=== PATIENT | female | born 1945 | race African-American/Black ===

== ENCOUNTER 2016-12-06 09:43 | Day surgery (SDC) | payer MEDICARE, OTHER ==
--- NOTE | 2016-12-03 13:28 | HISTORY AND PHYSICAL E ---
History and Physical NAME: MARGA LONG : 1945 AGE: 71Y ADMITTED: 12/06/2016 ROOM: HISTORY: Patient did have colonoscopy in 2004, which shows polyps. She does have diverticulosis. We saw her in 2004; presented with diarrhea, sigmoid polyp. Patient did have diverticulosis, benign hyperplastic sigmoid polyps. Patient referred to us at this time by Dr. Sayda Baker, [facility]. SURGICAL HISTORY: 1. Hysterectomy. 2. Tonsillectomy. MEDICATIONS: Are: 1. Aspirin. 2. Blood sugar medications. 3. Doxycycline. 4. Omeprazole. 5. Insulin. 6. . 7. Metoprolol. ALLERGIES: Negative. REVIEW OF SYSTEMS: CARDIOVASCULAR: Hypertension. High cholesterol. ENDOCRINE: Diabetes. GASTROINTESTINAL: Diverticulosis. Benign hyperplastic polyps. FAMILY HISTORY: Father is alive. Mom . PHYSICAL EXAMINATION: GENERAL: Pleasant, alert, oriented. Referred by Dr. García. VITAL SIGNS: Blood pressure 140/80, pulse 80, respirations 20, temperature is 98. HEAD, EYES, EARS, NOSE, THROAT: Normal. ABDOMEN: Soft. NEUROLOGIC: Exam negative. CONCLUSION: 1. COLON SCREENING 2. DIVERTICULOSIS. PLAN: Colonoscopy. Admit 12/06/2016; today is 12/03/2016. DICTATING PHYSICIAN: MANAV GEIGER M.D. [id number] [id number] PHY#: [id number] ID: [id number] JOB#: [id number] ACCT: [id number] cc: >
--- NOTE | 2016-12-03 13:33 | HISTORY AND PHYSICAL E ---
History and Physical NAME: MARGA LONG : 1945 AGE: 71Y ADMITTED: 12/06/2016 ROOM: HISTORY OF PRESENT ILLNESS: Patient referred to us for colonoscopy by [facility]. A 71-year-old female for colon screening. PAST MEDICAL HISTORY: 1. Diverticulosis. 2. Hyperplastic polyps. PAST SURGICAL HISTORY: 1. Hysterectomy. 2. Colonoscopy 10 years ago. SOCIAL HISTORY: . She does not smoke. Drinks rarely. FAMILY HISTORY: Father had lung cancer. Her mom of old age. REVIEWING OF SYSTEMS: CARDIAC: Hypertension. ENDOCRINE: Diabetes. GASTROINTESTINAL: Colon screening. History of polyps. Diverticulosis. PHYSICAL EXAMINATION: VITAL SIGNS: Blood pressure 110/60, pulse 80, respirations 20, temperature is 98. HEAD, EYES, EARS, NOSE, THROAT: Normal. ABDOMEN: Soft. NEUROLOGIC: Negative. CONCLUSION: 1. Colon screening. 2. Diverticulosis. 3. History of polyps. PLAN: Colonoscopy scheduled for 11/28/2016. DICTATING PHYSICIAN: MANAV GEIGER M.D. [id number] [id number] PHY#: [id number] ID: [id number] JOB#: [id number] ACCT: [id number] cc:MANAV GEIGER M.D. >
[~2016-12-06 09:43] MED LIST: EPINEPHRINE INJ 1 MG/10 ML DISP.SYRIN ONE; FLUMAZENIL INJ 0.5 MG/5 ML VIAL IV ONE; GLYCOPYRROLATE INJ 0.4 MG/2 ML VIAL ONE; LIDOCAINE 2% JELLY 30 ML TUBE ONE; NALOXONE HCL INJ/PF 0.4 MG/1 ML SDV ONE; ONDANSETRON HCL INJ/PF 4 MG/2 ML SDV ONE
[2016-12-06] MEDS: MIDAZOLAM 2 MG/2 ML INJ ONE ×4 (10:26→10:42)
[2016-12-06] MEDS: FENTANYL CITRATE INJ/PF 100 MCG/2 ML AMPUL ONE ×2 (10:28→10:41)
[2016-12-06] MEDS ORDERED: GLUCAGON,HUMAN RECOMB 1 MG INJ ONE (10:39)
[2016-12-06 11:45] LABS: ABSOLUTE EOSINOPHILS # (AUTO) 0.1 10^3/uL (0.0-0.6); ABSOLUTE LYMPHOCYTES (AUTO) 1.1 10^3/uL (0.5-4.7); ABSOLUTE MONOCYTES (AUTO) 0.5 10^3/uL (0.1-1.4); ABSOLUTE NEUT (AUTO) 7.1 10^3/uL (1.7-8.2); BASOPHILS % (AUTO) 0.4 % (0-2); HEMATOCRIT 33.8 % (36.0-47.0); HEMOGLOBIN 11.1 g/dL (12.0-15.5); HGB HCT DIFFERENCE -0.5; LYMPHOCYTES % (AUTO) 12.6 % (13-45); MEAN CORPUSCULAR HEMOGLOBIN 28.5 pg (27.0-33.4); MEAN CORPUSCULAR VOLUME 86 fl (80-97); MONOCYTES % (AUTO) 5.9 % (3-13); RED BLOOD COUNT 3.91 10^6/uL (3.72-5.28); RED CELL DISTRIBUTION WIDTH 14.6 % (11.5-14.0); SEGMENTED NEUTROPHILS % (AUTO) 80.1 % (42-78); WHITE BLOOD COUNT 8.9 10^3/uL (4.0-10.5)
[2016-12-06 11:59] VITALS: BP 119/59
--- NOTE | 2016-12-08 18:22 | DISCHARGE SUMMARY E ---
Discharge Summary NAME: MARGA LONG : 1945 AGE: 71Y ADMITTED: 12/06/2016 DISCHARGED: 12/06/2016 FINAL DIAGNOSES: 1. Diverticulosis, sigmoid descending colon, distal transverse colon. 2. Diminutive polyps, sigmoid and descending colon, 1 mm to 3 mm in size, benign looking, adjacent to the diverticulosis. DISCHARGE PLAN: 1. Diet, soft residue, 3 days. 2. Hold aspirin and nonsteroidal 5 days. 3. Awaiting biopsy results. 4. Followup office visit in the next few days. 5. Consideration followup colonoscopy 2 years pending biopsy results. DICTATING PHYSICIAN: MANAV GEIGER M.D. [id number] [id number] PHY#: [id number] ID: [id number] JOB#: [id number] ACCT: [id number] cc:REYES AUGUSTINE PA-C, MAHMOUD M.D. >
--- NOTE | 2016-12-08 18:23 | OPERATIVE REPORT E ---
Operative Report NAME: MARGA LONG : 1945 AGE: 71Y DATE OF SURGERY: 12/06/2016 ROOM: PREOPERATIVE DIAGNOSIS: COLON SCREENING. POSTOPERATIVE DIAGNOSES: 1. DIMINUTIVE RECTAL POLYPS. 2. DIMINUTIVE SIGMOID POLYPS. 3. SEVERE DIVERTICULOSIS SIGMOID DESCENDING COLON. OPERATION: Colonoscopy. SURGEON: MANAV GEIGER M.D. TISSUE REMOVED OR ALTERED: Polyps 1 to 2 mm in size each benign. Sigmoid, 3 polyps, 2 to 3 cm in size, benign. Descending colon diverticulosis. Transverse colon diverticulosis. Ascending colon normal. Cecum normal. Cecum withdrawn cecum, ascending, transverse, descending, sigmoid all the way to the rectum. CONCLUSIONS: Scattered diverticulosis in the distal ascending, transverse, descending and sigmoid. Diminutive benign-looking polyp in the rectum and sigmoid. Consideration followup colonoscopy 2 years, awaiting biopsy results. Preop screening with diminutive polyps sigmoid, descending colon, scattered diverticulosis transverse and descending and sigmoid colon. PLAN: Awaiting biopsy results. Consideration followup colonoscopy 2 years pending biopsy results. DICTATING PHYSICIAN: MANAV GEIGER M.D. [id number] [id number] PHY#: [id number] ID: [id number] JOB#: [id number] ACCT: [id number] cc:MANAV GEIGER M.D. , [facility]
== END 2016-12-06 12:15 | disposition home or self-care (01) ==
LOC: END 09:43
PROVIDERS: ATTEND Specialist
PROC: 0DBN8ZX Excision of Sigmoid Colon, Via Natural or Artificial Opening Endoscopic, Diagnostic (ICD-10-PCS; 2016-12-06)
PROC: 0DBP8ZX Excision of Rectum, Via Natural or Artificial Opening Endoscopic, Diagnostic (ICD-10-PCS; principal; 2016-12-06 10:00)
DX: Z12.11 Encounter for screening for malignant neoplasm of colon (principal); K57.30 Diverticulosis of large intestine without perforation or abscess without bleeding; D12.7 Benign neoplasm of rectosigmoid junction; I10 Essential (primary) hypertension; E78.00 Pure hypercholesterolemia, unspecified; E11.9 Type 2 diabetes mellitus without complications; Z79.4 Long term (current) use of insulin; Z79.82 Long term (current) use of aspirin; Z79.899 Other long term (current) drug therapy; Z79.84 Long term (current) use of oral hypoglycemic drugs
CPT/HCPCS: 45380; 36415; 82962; 85025; 88305 ×2; J2250; J3010; J1610; J2405; J0171; J2310; J3490

== ENCOUNTER → 2017-04-15 | Outpatient (CLI) | payer MEDICARE, OTHER ==
[2017-04-15 10:49] LABS: ALANINE AMINOTRANSFERASE 15 U/L (9-52); ALBUMIN 4.1 g/dL (3.5-5.0); ALKALINE PHOSPHATASE 50 U/L (38-126); ASPARTATE AMINO TRANSFERASE 21 U/L (14-36); BILIRUBIN,DIRECT 0.4 mg/dL (0.0-0.4); BILIRUBIN,TOTAL 0.4 mg/dL (0.2-1.3); CHOLESTEROL 125.86 mg/dL (0-200); Direct HDL 68 mg/dL (>40); TOTAL PROTEIN 6.7 g/dL (6.3-8.2); TRIGLYCERIDES 44 mg/dL (<150)
[2017-04-15 11:00] LABS: DIRECT LDL 41 mg/dL (<100)
== END ==
LOC: OD 08:54
PROVIDERS: ATTEND Internal Medicine Cardiovascular Disease
DX: E78.00 Pure hypercholesterolemia, unspecified (principal)
CPT/HCPCS: 36415; 80061; 80076

== ENCOUNTER → 2018-09-28 | Outpatient (CLI) | payer MEDICARE, OTHER ==
[2018-09-28 09:49] LABS: ALANINE AMINOTRANSFERASE 34 U/L (9-52); ALBUMIN 4.1 g/dL (3.5-5.0); ALKALINE PHOSPHATASE 43 U/L (38-126); ANION GAP 8 (5-19); ASPARTATE AMINO TRANSFERASE 25 U/L (14-36); BILIRUBIN,DIRECT 0.1 mg/dL (0.0-0.4); BILIRUBIN,TOTAL 0.3 mg/dL (0.2-1.3); BLOOD UREA NITROGEN 10 mg/dL (7-20); CALCIUM 9.8 mg/dL (8.4-10.2); CARBON DIOXIDE 27 mmol/L (22-30); CHLORIDE 108 mmol/L (98-107); CHOLESTEROL 119.71 mg/dL (0-200); GLUCOSE 154 mg/dL (75-110); POTASSIUM 4.4 mmol/L (3.6-5.0); TOTAL PROTEIN 6.5 g/dL (6.3-8.2); TRIGLYCERIDES 70 mg/dL (<150)
[2018-09-28 10:01] LABS: DIRECT LDL 50 mg/dL (<100)
== END ==
LOC: OD 08:23
PROVIDERS: ATTEND Internal Medicine Cardiovascular Disease
DX: E78.00 Pure hypercholesterolemia, unspecified (principal); Z79.899 Other long term (current) drug therapy
CPT/HCPCS: 36415; 80048; 80061; 80076

== ENCOUNTER → 2019-01-05 | Outpatient (CLI) | payer MEDICARE, OTHER ==
[2019-01-05 09:32] LABS: ALANINE AMINOTRANSFERASE 26 U/L (9-52); ALBUMIN 4.2 g/dL (3.5-5.0); ALKALINE PHOSPHATASE 45 U/L (38-126); ANION GAP 12 (5-19); ASPARTATE AMINO TRANSFERASE 26 U/L (14-36); BILIRUBIN,DIRECT 0.3 mg/dL (0.0-0.4); BILIRUBIN,TOTAL 0.4 mg/dL (0.2-1.3); BLOOD UREA NITROGEN 17 mg/dL (7-20); CALCIUM 9.8 mg/dL (8.4-10.2); CARBON DIOXIDE 27 mmol/L (22-30); CHLORIDE 106 mmol/L (98-107); CHOLESTEROL 125.85 mg/dL (0-200); GLUCOSE 99 mg/dL (75-110); POTASSIUM 4.2 mmol/L (3.6-5.0); SODIUM 144.6 mmol/L (137-145); TRIGLYCERIDES 64 mg/dL (<150)
[2019-01-05 09:59] LABS: DIRECT LDL 50 mg/dL (<100)
== END ==
LOC: LAB 08:54
PROVIDERS: ATTEND Internal Medicine Cardiovascular Disease
DX: E78.00 Pure hypercholesterolemia, unspecified (principal); I10 Essential (primary) hypertension; Z79.899 Other long term (current) drug therapy
CPT/HCPCS: 36415; 80048; 80061; 80076

== ENCOUNTER → 2019-07-26 | Outpatient (CLI) | payer MEDICARE, OTHER ==
[2019-07-26 09:20] LABS: ALBUMIN 4.4 g/dL (3.5-5.0); ALKALINE PHOSPHATASE 51 U/L (38-126); ANION GAP 9 (5-19); ASPARTATE AMINO TRANSFERASE 31 U/L (14-36); BILIRUBIN,DIRECT 0.1 mg/dL (0.0-0.4); BILIRUBIN,TOTAL 0.4 mg/dL (0.2-1.3); BLOOD UREA NITROGEN 9 mg/dL (7-20); CARBON DIOXIDE 28 mmol/L (22-30); CHLORIDE 106 mmol/L (98-107); CHOLESTEROL 121.26 mg/dL (0-200); GLUCOSE 123 mg/dL (75-110); POTASSIUM 4.2 mmol/L (3.6-5.0); TOTAL PROTEIN 7.5 g/dL (6.3-8.2); TRIGLYCERIDES 69 mg/dL (<150)
[2019-07-26 09:31] LABS: DIRECT LDL 46 mg/dL (<100)
== END ==
LOC: LAB 08:33
PROVIDERS: ATTEND Internal Medicine Cardiovascular Disease
DX: E78.00 Pure hypercholesterolemia, unspecified (principal); I10 Essential (primary) hypertension; Z79.899 Other long term (current) drug therapy
CPT/HCPCS: 36415; 80048; 80061; 80076

== ENCOUNTER → 2020-02-25 | Outpatient (CLI) | payer MEDICARE, OTHER ==
[2020-02-25 09:35] LABS: HEMATOCRIT 39.9 % (36.0-47.0); HEMOGLOBIN 13.3 g/dL (12.0-15.5); MEAN CORPUSCULAR HEMOGLOBIN 29.4 pg (27.0-33.4); MEAN CORPUSCULAR HGB CONC 33.2 g/dL (32.0-36.0); MEAN CORPUSCULAR VOLUME 88 fl (80-97); PLATELET COUNT 291 10^3/uL (150-450); RED BLOOD COUNT 4.52 10^6/uL (3.72-5.28); RED CELL DISTRIBUTION WIDTH 14.7 % (11.5-14.0); WHITE BLOOD COUNT 5.4 10^3/uL (4.0-10.5)
[2020-02-25 09:54] LABS: ALBUMIN 4.4 g/dL (3.5-5.0); ALKALINE PHOSPHATASE 48 U/L (38-126); ANION GAP 6 (5-19); ASPARTATE AMINO TRANSFERASE 32 U/L (14-36); BILIRUBIN,TOTAL 0.4 mg/dL (0.2-1.3); BLOOD UREA NITROGEN 12 mg/dL (7-20); CALCIUM 9.9 mg/dL (8.4-10.2); CARBON DIOXIDE 28 mmol/L (22-30); CHLORIDE 107 mmol/L (98-107); CHOLESTEROL 129.28 mg/dL (0-200); GLUCOSE 110 mg/dL (75-110); TOTAL PROTEIN 7.4 g/dL (6.3-8.2); TRIGLYCERIDES 62 mg/dL (<150)
[2020-02-25 10:05] LABS: DIRECT LDL 42 mg/dL (<100)
== END ==
LOC: OD 08:11
PROVIDERS: ATTEND Internal Medicine Cardiovascular Disease
DX: I10 Essential (primary) hypertension (principal); E78.00 Pure hypercholesterolemia, unspecified; Z79.899 Other long term (current) drug therapy
CPT/HCPCS: 36415; 80048; 80061; 80076; 83735; 85027

== ENCOUNTER → 2020-08-31 | Outpatient (CLI) | payer MEDICARE, OTHER ==
[2020-08-31 09:11] LABS: ALBUMIN 4.1 g/dL (3.5-5.0); ALKALINE PHOSPHATASE 44 U/L (38-126); ASPARTATE AMINO TRANSFERASE 43 U/L (14-36); BILIRUBIN,DIRECT 0.1 mg/dL (0.0-0.4); BILIRUBIN,TOTAL 0.3 mg/dL (0.2-1.3); CHOLESTEROL 120.14 mg/dL (0-200); TOTAL PROTEIN 6.8 g/dL (6.3-8.2); TRIGLYCERIDES 59 mg/dL (<150)
[2020-08-31 09:22] LABS: DIRECT LDL 35 mg/dL (<100)
== END ==
LOC: OD 08:09
PROVIDERS: ATTEND Internal Medicine Cardiovascular Disease
DX: E78.00 Pure hypercholesterolemia, unspecified (principal); Z79.899 Other long term (current) drug therapy
CPT/HCPCS: 36415; 80061; 80076